=== PATIENT | male | born 1960 | race Caucasian/White ===

== ENCOUNTER → 2019-09-07 15:52 | Outpatient (CLI) | payer OTHER, SELFPAY ==
[2019-09-07 17:08] LABS: Anion Gap 7 (5-15); BUN 14 mg/dL (7-18); BUN/Creat Ratio 13.5 RATIO (10-20); Calcium,Total 8.7 mg/dL (8.5-10.1); Chloride 104 mmol/L (98-107); Creatinine, Serum 1.04 mg/dL (0.70-1.30); EST Glomerular Filtration Rate 77 mL/min (>60); Est Glom Filt Rate - Afr Amer 94 mL/min (>60); Glucose 88 mg/dL (74-106); Potassium 3.8 mmol/L (3.5-5.1); Sodium Level 139 mmol/L (136-145)
== END ==
PROVIDERS: PCP Family Medicine; Referring Provider Urology; Visit Provider Urology
DX: N40.0 Benign prostatic hyperplasia without lower urinary tract symptoms (principal)
CPT/HCPCS: 36415; 80048; 84153

== ENCOUNTER 2019-09-18 10:38 | Day surgery (SDC) | payer OTHER, SELFPAY ==
[2019-09-18] VITALS (9 sets, daily range): BP systolic 112–135; BP diastolic 67–81; PULSE 53–72; RESP 16–18; TEMP 36.3–37.3; O2SAT 93–99; BMI 36.3
[2019-09-18] MEDS: Cefazolin 2 GM in 0.9% Normal Saline 100 ML IV (07:00)
[2019-09-18] MEDS: Lactated Ringers 1,000 ML 100 ML IV ×2 (11:13→14:15)
--- NOTE | 2019-09-18 12:25 | PROSBIL_PTH ---
PATIENT: ADDISON HERNANDEZ LOC: [facility] U#:[id number] AGE/SX: 58/M ROOM: RE09/18/[address]: Dr. Heriberto Engle MD : 1960 BED: DIS: 09/19/2019 SPEC #: [id number] RECD: 09/20/19 15:31 STATUS: CHRIS TRISH #: [id number] LYRIC: 09/18/19 12:[address]: Heriberto Engle DEPT: SURGICAL PATHOLOGY RECD BY: Carly Kim ENTERED: 09/21/19 07:55 SP TYPE: PROST BX OT DR: Dr. Burak Carrillo MD Tissues: A - PROSTATE RIGHT B - PROSTATE RIGHT C - PROSTATE RIGHT D - PROSTATE LEFT E - PROSTATE LEFT F - PROSTATE LEFT G - Prostate, NOS Procedures: PROSTATE BX Surgery Specimen Level IV HEADER OPERATION: Cysto, TUR prostate, Olympus PRE-OP DIAGNOSIS: BPH TISSUE SUBMITTED: A - Right base, B - Right middle, C - Right apex, D - Left base, E - Left middle, F - Left apex, G - Prostate tissue MICROSCOPIC DIAGNOSIS A. Right prostate, base, core biopsy: Mild chronic inflammation. B. Right prostate, middle, core biopsy: Mild chronic inflammation. C. Right prostate, apex, core biopsy: Glandular atrophy and focal acute inflammation. D. Left prostate, base, core biopsy: Mild chronic inflammation and focal acute inflammation. E. Left prostate, middle, core biopsy: Minimal chronic inflammation. F. Left prostate, apex, core biopsy: Mild chronic inflammation. G. Prostate tissue, biopsy: Mild chronic inflammation. Benign nodular hyperplasia, predominantly glandular and stromal types. Focal acute prostatitis. AM:sarika 09/22/19 MICROSCOPIC DESCRIPTION Slides are reviewed. GROSS DESCRIPTION A - Received is one container designated prostate, right base. The specimen consists of one elongated fragment of light be-white soft tissue measuring 1.6 cm in length and 0.1 cm in diameter. The specimen is totally submitted in one cassette. B - Received is one container designated prostate, right middle. The specimen consists of one elongated fragment of light be-white soft tissue measuring 1.5 cm in length and 0.1 cm in diameter. The specimen is totally submitted in one cassette. C - Received is one container designated prostate, right apex. The specimen consists of one elongated fragment of light be-white soft tissue measuring 1.5 cm in length and 0.1 cm in diameter. The specimen is totally submitted in one cassette. D - Received is one container designated prostate, left base. The specimen consists of two elongated fragments of light be-white soft tissue each measuring 1.3 cm in length and 0.1 cm in diameter. The specimen is totally submitted in one cassette. E - Received is one container designated prostate, left middle. The specimen consists of one elongated fragment of light be-white soft tissue measuring 1.4 cm in length and 0.1 cm in diameter. The specimen is totally submitted in one cassette. F - Received is one container designated prostate, left apex. The specimen consists of one elongated fragment of light be-white soft tissue measuring 1.8 cm in length and 0.1 cm in diameter. The specimen is totally submitted in one cassette. G - Received is one container labeled with the patient's name and designated prostate tissue. The specimen consists of multiple irregular fragments of pink-be, rubbery, soft tissue that in aggregate weigh 29.3 gm and measure in aggregate 8 x 7 x 3 cm. Rebeamer tissue is submitted in 12 cassettes. / SJ:sarika 09/21/19 TC:2 CPT: 92813 x7
--- NOTE | 2019-09-18 12:43 | EKG12_ITS ---
Test Reason : PREOP Blood Pressure : / mmHG Vent. Rate : 060 BPM Atrial Rate : 060 BPM P-R Int : 172 ms QRS Dur : 096 ms QT Int : 426 ms P-R-T Axes : 022 -34 007 degrees QTc Int : 426 ms Normal sinus rhythm Left axis deviation Abnormal ECG When compared with ECG of 07-JUN-2014 12:49, No significant change was found Confirmed by JOEL BORGES ([id number]), map editor FAYE GODOY ([id number]) on 09/21/2019 11:39:38 AM Referred By: Heriberto Engle Confirmed By:JOEL BORGES
--- NOTE | 2019-09-18 14:33 | DCINST_ITS ---
Discharge Diet: Light diet - advance as tolerated Discharge Activity: Return to Normal Activity, May Not Drive - for 2 days. Additional Activity Instructions:: Please be aware that pain medications may cause nausea. You should typically eat light foods as you take your pain medication. Pain medication may cause constipation, if this is a problem for you, please discuss with your doctor. Call your doctor if your incision/area has: Sudden Increased Bleeding Call your doctor if you observe: Fever of 101 or Higher Suture Line Care: Avoid Pulling/Pushing, Avoid Pinching/Bending Instructions: Transurethral Resection of the Prostate (TURP): Home Recovery Allergies/Adverse Reactions: Allergies No Known Allergies Allergy (Verified 09/18/19 11:04) Medications to take at Discharge Cyanocobalamin (Vitamin B-12) [Vitamin B12] 2,500 mcg PO DAILY 09/16/19 Melatonin/Pyridoxine HCl (B6) [Melatonin 10 mg Tablet] 1 ea PO QHS 09/16/19 Tamsulosin HCl [Flomax] 0.4 mg PO BID 09/16/19 Temazepam [Restoril] 15 mg PO QHS 09/16/19 Primary Care Physician: Burak Carrillo MD [Primary Care Provider] - Test Results: Test results from this visit will be discussed in further detail at your follow- up appointment, if applicable. Please Follow Up With: Heriberto Engle MD When: in 2 weeks, please call to make an appointment.
--- NOTE | 2019-09-18 14:37 | PCM.OPRPT ---
Report of Operation Date of Procedure: 09/18/19 Pre-Operative Diagnosis: Elevated PSA, BPH with obstruction Post-Operative Diagnosis: Same Surgery/Procedure Performed:: Transrectal guided prostate biopsies and TURP Description of Surgical Findings:: Patient is a male patient with a history of obstruction of the prostate with enlargement of the prostate. On prior examination the prostate is enlarged. He has been found to have outlet obstruction causing significant symptoms. We discussed the options of management for his prostate condition including laser surgery, office-based procedures, observation, management with a catheter long-term. We talked about the outcomes potential side effects of these different management options with surgery we talked about the risk of bleeding from the prostate, risk risk of recurrent bleeding, we talked about the risk of retrograde ejaculation and possible sexual dysfunction with surgery. We also discussed the risk of anesthesia including pulmonary embolism, blood clots, cardiac complications pulmonary complications. All the patient's questions were answered and working to proceed with a transurethral resection of the prostate with a bipolar Olympus resectoscope and a prostate biopsy. Patient was taken back to the operating room after smooth induction of anesthesia by the anesthesia team he was given IV antibiotics, and also had SCDs for DVT prophylaxis. He was put on the table supine in a comfortable position and underwent general anesthesia. First a probe was put into the rectum and then biopsies were completed of the prostate at the right base right mid right apex, left base left mid left apex. Good samples were obtained minimal bleeding occurred. Patient was then repositioned for a TURP. The legs were then positioned in dorsolithotomy position in stirrups making sure that all pressure points were padded. The penis and testicles perineum and lower pelvis were then prepped and draped in the usual sterile fashion. We then performed a cystoscopy using a well-lubricated 21 Armenian rigid cystourethroscope to inspect the prostate and the bladder and identify the right and left ureteral orifices. We then went back into the prostate with a resectoscope and found a very large obstructing prostate with bilateral hypertrophy and then started the resection first at the median lobe, and then we started resecting the right lobe of the prostate starting at the 6 o'clock position working away to the 7 o'clock position all the way up to the 12 o'clock position on the prostate wall working her way back to the verumontanum in order to open up the channel completely that have been open resection. We then used electrocautery to obtain hemostasis on the side of the prostate. We then turned to the right side of the prostate and continued with the resection starting the 6 o'clock position working away to the 12 o'clock position working her way back to the verumontanum. We did then obtain hemostasis from the prostate on the right side. All the resection prostate chips were then removed from the bladder using Ellik evacuator and also many evacuation. We checked the bladder and make sure that both the right and left ureteral orifice were patent and open and were uninjured after the procedure was completed. We then very carefully inspected the apical tissue made sure that there is no obstructing or flapping tissue in the apex. We performed a flow test and the patient had a wide open flow. We looked back inside the bladder through the urethra there was no scar tissues or abnormalities along the course of the urethra no injuries or tears the sphincter was intact we went beyond the sphincter and the patient had an open channel from the verumontanum all the way to the bladder neck with no significant bleeding good hemostasis and no chips were identified within the bladder itself. We then placed a continuous catheter within the bladder and started irrigation the urine was fairly clear with some light pink urine. Patient's anesthetic was reversed he was taken back to the PACU in stable condition with continuous bladder irrigation. Type of Anesthesia:: General Drains: [address] Estimated Blood Loss (mL): 50 - Admit VTE Documentation VTE Present on Admission: No VTE Mechan Device Prophylaxis: SCD's
[2019-09-18] MEDS: 0.9% Normal Saline 1,000 ML 75 ML IV (18:09)
[2019-09-18] MEDS: Tamsulosin HCl 0.4 MG Capsule PO (18:09)
[2019-09-18] MEDS: Docusate Sodium 100 MG Capsule PO (20:56)
[2019-09-18] MEDS: Temazepam 15 MG Capsule PO (20:56)
[2019-09-18] MEDS: Ciprofloxacin 400 MG/200 ML BAG 200 MG IV (20:57)
[2019-09-19] MEDS: Ondansetron 4 MG/2 ML Vial IV (03:53)
[2019-09-19] MEDS: Ibuprofen 600 MG Tablet PO (03:53)
[2019-09-19 03:58] VITALS: BP 133/74; PULSE 74; RESP 17; TEMP 37.4; O2SAT 97
[2019-09-19 07:13] LABS: Hematocrit 38.1 % (40-54); Hemoglobin 12.7 g/dL (13.0-16.5); Mean Corp Hgb Conc 33.3 g/dL (32-36); Mean Corpuscular Hgb 29.4 pg (27.0-32.0); Mean Corpuscular Volume 88.2 fL (80-94); Mean Platelet Vol. 10.5 fl (6.2-12.0); Platelet Count 149 K/mm3 (150-450); RBC Distribution Width CV 12.4 % (11.6-14.6); RBC Distribution Width SD 39.7 fl (35.1-43.9); Red Blood Count 4.32 M/mm3 (4.6-6.2); White Blood Count 5.6 K/mm3 (4.4-11.0)
[2019-09-19 07:41] LABS: Anion Gap 5 (5-15); BUN 13 mg/dL (7-18); BUN/Creat Ratio 12.5 RATIO (10-20); Chloride 105 mmol/L (98-107); Creatinine, Serum 1.04 mg/dL (0.70-1.30); EST Glomerular Filtration Rate 77 mL/min (>60); Est Glom Filt Rate - Afr Amer 94 mL/min (>60); Estimated Creatinine Clearance 86.43 ml/min; Glucose 100 mg/dL (74-106); Potassium 3.9 mmol/L (3.5-5.1); Sodium Level 138 mmol/L (136-145)
[2019-09-19 08:49] VITALS: BP 108/61; PULSE 70; RESP 18; TEMP 36.9; O2SAT 96
[2019-09-19] MEDS: Tamsulosin HCl 0.4 MG Capsule PO (08:51)
[2019-09-19] MEDS: Docusate Sodium 100 MG Capsule PO (08:54)
[2019-09-19] MEDS: Ciprofloxacin 400 MG/200 ML BAG 200 MG IV (08:54)
== END 2019-09-19 13:45 | disposition home or self-care (01) ==
LOC: SDC 10:38 → AC 10:40 → MS3 09-21 07:09
PROVIDERS: PCP Family Medicine; Referring Provider Urology; Visit Provider Urology
PROC: (CPT 52601; principal; 2019-09-18 12:15)
DX: N40.1 Benign prostatic hyperplasia with lower urinary tract symptoms (principal); N13.8 Other obstructive and reflux uropathy; R35.0 Frequency of micturition; R39.11 Hesitancy of micturition; R33.8 Other retention of urine; R39.12 Poor urinary stream; D86.9 Sarcoidosis, unspecified; Z79.899 Other long term (current) drug therapy
CPT/HCPCS: 52601; 36415; 80048; 85027; 88305; 93005; 99251; J7030; J7120; G0416; G0463; J0744; J2405

== ENCOUNTER → 2020-03-17 10:27 | Outpatient (CLI) | payer OTHER, SELFPAY ==
[2019-09-18 15:58] VITALS: BMI 36.3
[2020-03-17 10:51] LABS: Erythrocyte Sedimentation Rate 8 mm/hr (0-20)
[2020-03-17 10:58] LABS: AST(SGOT) 17 U/L (15-37); Alanine Aminotransfer ALT/SGPT 31 U/L (16-61); Albumin, Serum 3.7 g/dL (3.2-5.0); Alkaline Phosphatase 99 U/L (45-117); BUN 25 mg/dL (7-18); Bilirubin, Direct 0.22 mg/dL (0.00-0.30); CPK Total, Creatine Kinase 91 U/L (39-308); Calcium,Total 8.6 mg/dL (8.5-10.1); Globulin 3.7 g/dL (2.2-4.2); Protein, Total 7.4 g/dL (6.4-8.2)
[2020-03-18 14:28] LABS: Angiotensin Convert Enzyme 63 U/L (14-82)
== END ==
PROVIDERS: PCP Family Medicine; Referring Provider Internal Medicine Pulmonary Disease; Visit Provider Internal Medicine Pulmonary Disease
DX: R53.83 Other fatigue (principal)
CPT/HCPCS: 36415; 80076; 82164; 82310; 82550; 84520; 85652

== ENCOUNTER → 2020-06-19 14:18 | Outpatient (REF) | payer OTHER, SELFPAY ==
[2020-06-19 12:49] VITALS: BMI 39.9
== END ==
LOC: COVBMS 14:18
PROVIDERS: Visit Provider Physician Assistant Medical
DX: U07.1 COVID-19 (principal)
CPT/HCPCS: 87635; U0003